=== PATIENT | female | born 1950 | race Caucasian/White ===

== ENCOUNTER 2020-01-07 08:44 | Outpatient (CLI) | payer MEDICARE, OTHER ==
[~2020-01-07] VITALS: Ht 167.6 cm; Wt 48.2 kg
--- NOTE | ~2020-01-07 | HEMODYNAMI ---
PATIENT:ADRY MERRITT MEDICAL RECORD: [id number] : 50 LOCATION:[facility] ADMISSION DATE: 01/07/20 Generatedon:01/07/202012:45 Patient name: ADRY MERRITT Patient #: [id number] SSN: : 1950 Date of study: 01/07/2020 Page: Of Hemodynamic Procedure Report Patient Data Patient Demographics Procedure consent was obtained First Name: ADRY Gender: Female Last Name: RENÉ : 1950 Patient #: [id number] Age: 69 year(s) Race: Unknown Additional ID: [id number] Contact details [address]: [address] [place] [address] State: [place] City: [place] Zip code: [address] Admission Admission Data Admission Date: 01/07/2020 Admission Time: 8:44 Procedure Procedure Types Cath Procedure Peripheral Cath Diagnostic Procedure Gastric G Tube Placement Procedure Description Procedure Date Procedure Date: 01/07/2020 Procedure Start Time: 11:58 Procedure Staff Name Function Martínez Garciacande RT Monitor Teo Barlow Jr AVIONICS SUPERVISOR Additional personnel Shane Elizabeth MD Performing Physician Rekha Bruno RN Nurse ZIA KELLEY RT Scrub Procedure Data Cath Procedure Fluoroscopy Diagnostic fluoroscopy Total fluoroscopy Time: 7.6 time: 7.6 min min Diagnostic fluoroscopy Total fluoroscopy dose: 76 dose: 76 mGy mGy Contrast Material Contrast Material Type Amount (ml) Isovue 300 10 Procedure Medications Medication Administration Route Dosage Lidocaine 1% added to field 20 Heparin Flush Bag added to field 2 bags (1000units/500ml NS) Ancef (1Gm/50ml NS) I.V.P.B 1 g Glucagon I.V. 1 mg Refer to Anesthesia Notes for Sedation Medications Hemodynamics Rest Heart Rate: 63 (bpm) Snapshots Pre Cath Intra NCS Post Cath Vital Signs Time Heart Resp SPO2 etCO2 NIBP Rhythm Pain Sedation Rate (ipm) (%) (mmHg) (mmHg) Status Level (bpm) 11:34:21 88 17 16.5 146/51(91) NSR 0 (11) 10(A) , No pain 11:38:41 60 12 17.2 95/48(66) NSR 0 (11) 10(A) , No pain 11:42:43 60 13 11.2 95/49(70) NSR 0 (11) 10(A) , No pain 11:46:45 66 11 94 19.5 99/49(74) NSR 0 (11) 10(A) , No pain 11:50:48 58 12 95 11.2 96/46(73) NSR 0 (11) 10(A) , No pain 11:54:50 57 12 94 16.5 99/46(71) NSR 0 (11) 10(A) , No pain 11:58:52 58 12 94 21 108/52(82) NSR 0 (11) 10(A) , No pain 12:03:02 59 11 0 79/39(63) NSR 0 (11) 10(A) , No pain 12:06:57 59 21 11.2 87/47(63) NSR 0 (11) 10(A) , No pain 12:10:55 61 19 98 12.7 99/50(71) NSR 0 (11) 10(A) , No pain 12:14:58 59 11 9.7 92/46(67) NSR 0 (11) 10(A) , No pain 12:18:58 57 10 96 13.4 91/48(66) NSR 0 (11) 10(A) , No pain 12:22:58 57 10 90 0 93/50(67) NSR 0 (11) 10(A) , No pain 12:27:02 57 46 96 0 83/38(57) NSR 0 (11) 10(A) , No pain 12:30:33 55 10 92 7.4 80/40(56) NSR 0 (11) 10(A) , No pain 12:34:30 55 10 95 2.2 98/43(73) NSR 0 (11) 10(A) , No pain 12:38:30 54 10 94 0 115/55(89) NSR 0 (11) 10(A) , No pain 12:42:35 54 10 91 0 115/55(91) NSR 0 (11) 10(A) , No pain Medications Time Medication Route Dose Verified Delivered Reason Notes Eff ectiveness by by 11:42:42 Lidocaine 1% added 20ml Shane Lynn for local to vial Clara Elizabeth MD anesthetic field MD 11:43:06 Heparin Flush added 2 Shane Lynn used for Bag to bags Clara Elizabeth MD procedure (1000units/500ml field MD KEVEN) 11:43:26 Ancef (1Gm/50ml I.V.P.B 1 g Shane Da Silva Per KEVEN) Damion Elizabeth RN physician 12:07:55 Glucagon I.V. 1 mg Shane Lynn Per Clara Elizabeth MD physician MD 12:09:57 Refer to Shane Lynn Anesthesia Notes Clara Elizabeth MD for Sedation MD Medications Procedure Log Time Note 11:19:54 Martínez Rondon RT (R) (CV) sent for patient. Start room use. 11:19:56 Time tracking: Regular hours (M-F 7:00 - 5:00) 11:20:02 Patient received from Outpatients to IR Alert and oriented. Tansferred to table in Supine position. 11:20:05 Signed procedure consent form obtained from patient. 11:20:06 Warm blankets applied, and donell hugger turned on for patient comfort. 11:20:07 Correct patient and procedure confirmed by team. 11:20:11 ECG and BP/O2 sat monitors applied to patient. 11:20:33 Teo Barlow Jr, CRNA present and monitoring patient for TIVA. 11:32:33 Use device set IR Diagnostic 11:32:34 Bag Decanter (2002S) opened to sterile field. 11:32:35 Tegaderm 4 x 4 (1626W) opened to sterile field. 11:32:35 Sterile Angiographic Pack opened to sterile field. 11:32:41 - 11:32:41 Full Disclosure recording started 11:33:03 SEE ANESTHESIA NOTE FOR PRE PROCEDURE ANESTHESIA 11:33:04 - 11:33:18 Vital chart was started 11:33:22 Left abdomen area was prepped with chlora-prep and draped in sterile fashion 11:33:49 Right abdomen area was prepped with chlora-prep and draped in sterile fashion 11:35:15 2) 60-89 Mildly reduced kidney function, and other findings (as for stage 1) point to kidney disease. 11:35:58 Maximum allowable contrast dose (3.7 X eGFR X 0.75)183 ml. 11:40:17 H&P Date Dictated: 01/07/2020 H&P Addendum completed by physician on day of procedure. (MUST COMPLETE FOR ALL OUTPATIENTS). 11:40:31 Baseline sample Acquired. 11:40:36 Baseline sample Acquired. 11:42:42 Lidocaine 1% 20ml vial added to field was administered by Shane Elizabeth MD; for local anesthetic; Verbal order read back and verified. 11:43:06 Heparin Flush Bag (1000units/500ml NS) 2 bags added to field was administered by Shane Elizabeth MD; used for procedure; Verbal order read back and verified. 11:43:26 Ancef (1Gm/50ml NS) 1 g I.V.P.B was administered by Rekha Bruno RN; Per physician; Verbal order read back and verified. 11:57:12 Physician arrived 11:57:13 --------ALL STOP TIME OUT------ 11:57:14 Final Timeout: patient, procedure, and site verified with staff and physician. All members of the team are in agreement. 11:57:18 Left abdomen site verified by team. 11:57:25 Right abdomen site verified by team. 11:57:37 Sedation plan: Local Anesthetic Medication:Propofol 11:58:17 Procedure started. 11:58:24 Local anesthetic to Abdominal area with Lidocaine 1% by Shane Elizabeth MD.INITIAL ACCESS ONLY 11:58:34 COPE GASTRO SUTURE SET ([id number]) opened to sterile field. 11:58:35 GLIDE WIRE ANGLE 180cm (EX6132) opened to sterile field. 11:58:[address] Peel-A-Way Introducer 22Fr opened to sterile field. 11:58:36 GLIDE CATHETER 5FR ANGLED 65cm (CG507) opened to sterile field. 11:58:37 STOPCOCK 3-Way Large Bore ([id number]) opened to sterile field. 12:07:55 Glucagon 1 mg I.V. was administered by Shane Elizabeth MD; Per physician; Verbal order read back and verified. 12:08:48 GASTROSTOMY 18Fr Tri-Funnel Tube ([id number]) opened to sterile field. 12:09:57 Refer to Anesthesia Notes for Sedation Medications was administered by Shane Elizabeth MD; ; Verbal order read back and verified. 12:24:25 AMPLATZ Super Stiff 75cm wire ([id number]) opened to sterile field. 12:24:26 PERCUTANEOUS ENTRY 19GA needle opened to sterile field. 12:26:46 DILATOR, VESSEL 8/20 opened to sterile field. 12:28:12 PEEL-A-WAY INTRODUCER 18 FR opened to sterile field. 12:28:13 PEEL-A-WAY INTRODUCER 20 FR opened to sterile field. 12:28:35 DILATOR, VESSEL 11/20 opened to sterile field. 12:28:36 DILATOR, VESSEL 12/20 opened to sterile field. 12:28:37 DILATOR, VESSEL 14/20 opened to sterile field. 12:33:39 Procedure ended.(Physican Out) 12:34:00 Fluoroscopy time 07.60 minutes. 12:34:06 Fluoroscopy dose: 76 mGy 12:34:06 Flurop Dose total: 76 12:34:27 Contrast amount:Isovue 300 10ml. 12:34:29 Sharps counted by scrub and verified by R.N. 12:34:39 Post Abdominal area:stable 12:36:20 SEE ANESTHESIA NOTE FOR POST PROCEDURE ANESTHESIA 12:43:09 Report given to Outpatients. 12:43:12 Patient transfered to Outpatients with Stretcher. 12:43:41 Vital chart was stopped 12:43:45 Full Disclosure recording stopped Device Usage Item Name Manufacture Quantity Catalog Hospital Part Current Minimal Lot# / Number Charge Number Stock Stock Serial# Code Bag Decanter [employer] 1 [id number] 5 ([employer] Sterile Cardinal 1 [id number] 322158 200108 5 Angiographic Health Pack Tegaderm 4 x 3M 1 1626W 284987 667245 350982 5 4 (1626W) COPE GASTRO [employer] 1 908773 970918 894550 572623 1 SUTURE SET ([id number]) GLIDE WIRE Terumo 1 [id number] 492369 739183 487144 5 ANGLE 180cm (UX3469) GLIDE Terumo 1 CG507 946059 697383 5 CATHETER 5FR ANGLED 65cm (CG507) Peel-A-Way [employer] 1 M15866 300871 203028 594993 5 [id number] Introducer 22Fr STOPCOCK [employer] 1 [id number] 448673 5489 938388 [id number] 3-Way Large Bore (V86696) GASTROSTOMY Bard 1 018741 729240 436144 5 18Fr Tri-Funnel Tube (575838) AMPLATZ [place] 1 [id number] 426759 779064 637341 5 [id number] Super Stiff Scientific 75cm wire ([id number]) PERCUTANEOUS [employer] 1 A59291 869316 961843 5 [id number] ENTRY 19GA needle DILATOR, [employer] 1 U56213 913625 31786 750313 5 VESSEL 8/20 PEEL-A-WAY [employer] 1 I51288 604036 780310 491727 1 [id number] INTRODUCER 18 FR PEEL-A-WAY [employer] 1 K66384 032767 426036 833681 1 [id number] INTRODUCER 20 FR DILATOR, [employer] 1 [id number] 635733 69837 247579 5 VESSEL 11/20 DILATOR, [employer] 1 F58615 936624 007478 798239 5 VESSEL 12/20 DILATOR, [employer] 1 W21251 846885 870419 313284 5 VESSEL 14/20 Signature Audit [place] Stage Time Signature Unsigned Intra-Procedure 01/07/2020 Martínez 12:43:37 PM [place] RT (R) (CV) [facility] [address] [place] [address]
[2020-01-07] MEDS ORDERED: PROTONIX40 MG PO (09:12)
[2020-01-07] MEDS ORDERED: ZOFRAN ODT4 MG/UDTAB PO (09:16)
[2020-01-07] MEDS ORDERED: MORPHINE PO (09:16)
[2020-01-07] MEDS ORDERED: TENORMIN25 MG PO (09:17)
[2020-01-07] MEDS ORDERED: FUROSEMIDE20 MG PO (09:17)
[2020-01-07] MEDS ORDERED: DULCOLAX10 MG/SUPP RC (09:18)
[2020-01-07] MEDS ORDERED: LIDOCAINE (09:21)
[2020-01-07] MEDS ORDERED: CARAFATE1 G PO (09:22)
[2020-01-07] MEDS ORDERED: NYSTATIN100000 UN4 PO (09:23)
[2020-01-07] MEDS ORDERED: OXYCODONE H5 MG/5 ML PO (09:24)
[2020-01-07] MEDS ORDERED: DRONABINOL5 MG PO (09:25)
[2020-01-07] MEDS ORDERED: ALOE JUICE (09:25)
[2020-01-07 09:43] VITALS: BP 112/49; Ht 167.6 cm; Wt 48.2 kg
[2020-01-07 09:58] LABS: BASOPHILS 0.2 % (0-2); EOSINOPHILS 1.4 % (0-7); HEMATOCRIT 38.6 % (36.0-48.0); HEMOGLOBIN 12.8 g/dL (12-16); IMMATURE GRANULOCYTES 0.6 % (0-5); LYMPHOCYTES 5.6 % (15-50); MCH 30.7 pg (26.0-34.0); MCHC 33.2 g/dL (31.0-37.0); MCV 92.6 fL (80.0-100.0); MEAN PLATELET VOLUME 10.1 fL (7.4-10.4); MONOCYTES 12.7 % (2-11); NEUTROPHILS 79.5 % (40-80); PLATELET COUNT 196 10x3/uL (130-400); RBC 4.17 10x6/uL (4.00-5.40); RDW 14.2 % (11.5-14.5)
[2020-01-07 10:09] LABS: ANION GAP 15.5 mmol/L (8-16); CALCIUM 9.1 mg/dL (8.5-10.1); CARBON DIOXIDE 25.7 mmol/L (21.0-32.0); CREATININE - SERUM 0.9 mg/dL (0.6-1.3); POTASSIUM - SERUM 4.2 mmol/L (3.5-5.1)
[2020-01-07 10:44] LABS: APTT 32.6 SECONDS (22.8-39.4); INR 0.99 (0.85-1.17); PROTIME 13.1 SECONDS (11.6-15.0)
--- NOTE | 2020-01-07 13:58 | NUR ---
NUTRITION CONSULT PEG TUBE FEED RECOMMENDATIONS 1)JEVITY 1.2 CALORIE TUBE FEEDS. 4 AND 1/2 CANS PER DAY TOLERATED. 2)BOLUS ONE CAN AT 7 AM, 11 AM, 3 PM, 7 PM, 1/2 CAN 30 MINS BEFORE BEDTIME. 3)50 CC H2O FLUSH BEFORE AND AFTER EACH BOLUS. 4)HEAD OF BED =/> 30 DEGREES OR UP TO CHAIR WITH EACH BOLUS. RD FOLLOWING
== END 2020-01-07 14:30 ==
LOC: D.SP 08:44 → D.RAD 11:00 → D.SP 11:00
PROVIDERS: General Practice; ATTEND Internal Medicine Medical Oncology
DX: C15.3 Malignant neoplasm of upper third of esophagus (principal); E86.0 Dehydration; I10 Essential (primary) hypertension; Z72.0 Tobacco use; R13.10 Dysphagia, unspecified; E87.1 Hypo-osmolality and hyponatremia; G62.9 Polyneuropathy, unspecified